=== PATIENT | female | born 1995 | race Caucasian/White ===

== ENCOUNTER → 2019-08-14 14:58 | Outpatient (BNVA) | payer BC, SELFPAY | PROVIDERS: Visit Provider Obstetrics & Gynecology | DX: Z34.91 Encounter for supervision of normal pregnancy, unspecified, first trimester | CPT/HCPCS: 80307; 81000; 84315; 85027; 86592; 86762; 86803; 86850; 86900; 87086; 87340 ==

== ENCOUNTER → 2019-08-21 11:09 | Outpatient (BNVA) | payer BC, SELFPAY | PROVIDERS: Visit Provider Obstetrics & Gynecology | DX: Z34.91 Encounter for supervision of normal pregnancy, unspecified, first trimester (principal) | CPT/HCPCS: 84315; 87491; 87591 ==

== ENCOUNTER 2019-10-12 09:38 | Outpatient (CLI) | payer BC, MEDICAID, SELFPAY ==
--- NOTE | 2019-10-12 09:49 | US_ITS ---
WS: [id number] ULTRASOUND TRANSABDOMINAL HISTORY: SECOND TRIMESTER /ANATOMY CHECK : 1 PARA: 0 COMPARISON: None available. FINDINGS: Cervical length is 4.33 cm; closed. Placenta grade 0, anterior cardiac tones 157 BPM. The facial features are normal with no anomalous changes. The thoracic area show normal appearance all 4 chambers of the heart were seen. Umbilical insertion appear to be normal. Cephalic presentation anterior placenta. The skull, cervical, thoracic, lumbar spine all appear to be normal and developing. The extremities were normal. The abdominal circumference show no abnormalities the kidneys are seen Biparietal diameter measures 4.9 cm, equals 20w6d. Head circumference measures 18.2 cm, equals 20w4d. Abdomen circumference measures 15.7 cm, equals 20w6d. Femur length measures 3.4 cm, equals 20w5d. Estimated gestational age 20w5d An estimated delivery 02/24/2020. Estimated weight 376 g. US/US OB >= 14 weeks fetus [id number] IMPRESSION: 1. Single live intrauterine uterines . Estimated gestational age 20w 5d and estimated delivery 02/24/2020.
== END 2019-10-12 09:39 | disposition home or self-care (01) ==
LOC: RAD 09:40
PROVIDERS: PCP Family Medicine; Visit Provider Family Medicine
DX: Z34.92 Encounter for supervision of normal pregnancy, unspecified, second trimester (principal)
CPT/HCPCS: 76805

== ENCOUNTER 2020-02-09 17:25 | Inpatient (IN) | payer BC, MEDICAID, SELFPAY ==
[2020-02-09] VITALS (43 sets, daily range): BP systolic 0–175; BP diastolic 0–105; PULSE 74–112; RESP 16–18; TEMP 36.8–36.9; BMI 32.1
[2020-02-09 16:30] LABS: Add Urine Microscopic? NO
[2020-02-09 16:34] LABS: Basophils % 0.3 %; Eosinophils % 0.3 %; Hemoglobin 11.3 g/dL (11.5-15.3); Lymphocytes # 1.4 10^3/uL (0.8-4.8); Mean Corpuscular HGB Conc 32.3 g/dL (30.0-36.0); Mean Corpuscular Hemoglobin 29.5 pg (28.0-34.0); Mean Corpuscular Volume 91.4 fL (81-99); Monocytes # 0.5 10^3/uL (0.2-0.9); Monocytes % 6.5 %; Neutrophils # 5.95 10^3/uL (1.8-7.7); Neutrophils % 74.5 %; Nucleated Red Blood Cells % 0 %; Platelet Count 153 10^3/cmm (130-400); Red Blood Count 3.83 10^6/uL (4.1-5.3)
[2020-02-09 16:49] LABS: Albumin Level 3.8 g/dL (3.5-5.2); Alkaline Phosphatase 121 IU/L (35-105); Blood Urea Nitrogen 13 mg/dL (6-20); Calcium 9.3 mg/dL (8.5-10.5); Carbon Dioxide 18 mmol/L (22-29); Chloride 103 mmol/L (98-107); Globulin 2.5 g/dL (1.3-4.6); Glucose 74 mg/dL (65-115); Osmolality Calculated 275 mOsm/kg (285-295); Sodium 135 mmol/L (136-145); Total Bilirubin 0.2 mg/dL (0.15-1.2); Total Protein 6.3 g/dL (6.6-8.7); Uric Acid 6.2 mg/dL (2.4-5.7)
[2020-02-09 17:00] LABS: UPRO/UCREAT Ratio 0.48 mg/mg CR; Urine Creatinine 25 mg/dL (28-217); Urine Protein Random 12 mg/dL
[2020-02-09 17:05] LABS: Bilirubin Urine Neg (NEGATIVE); Blood Urine Neg (Negative); Glucose Urine UA Norm (Normal); Ketones Urine Negative (Negative); Leukocyte Esterase Urine Negative (Negative); Nitrate Urine Negative (Negative); Protein Urine Neg (Negative); Specific Gravity, Urine 1.005 (1.005-1.030); Urine Appearance Clear (CLEAR); Urine Color Straw (Yellow); Urobilinogen Urine Norm (Negative); pH Urine 7 (5-7)
[2020-02-09 17:17] LABS: Slide Review Slide Review Perform
[2020-02-09 17:29] LABS: Anion Gap 18.5 (5-19); Potassium 4.5 mmol/L (3.5-5.1)
[2020-02-09 17:30] LABS: Alanine Aminotransferase 19 U/L (0-33); Aspartate Amino Transferase 43 U/L (0-32)
--- NOTE | 2020-02-09 18:33 | PC.NURSE ---
Payal Monge RN was made aware that lab notified this nurse that the Type and Screen would be cancelled due to it being hemolyzed.
--- NOTE | 2020-02-09 18:59 | P.CONIM_ITS ---
Providers/Reason for Consult Consulting Physican/Specialty*: Dr. Brian Bob Reason for Consult*: Severe preeclampsia at 37 weeks Requesting Physcian: Dr. 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 She presented to labor and delivery from Dr. Larkin's office due to elevated blood pressure and proteinuria. While in L&D she was noted to have several elevated blood pressures with some of these in the severe range. Protein creatinine ratio was elevated at 0.48. Based upon these findings, she has preeclampsia with the blood pressure readings correlating with severe preeclamps ia. As a result, she was admitted to the hospital. I was consulted for hospital management due to the severe preeclampsia. Patient reports feeling movement. She denies current headache. She denies current visual changes. She denied shortness of breath or chest pains. She denied abdominal pains. She reports she has had some swelling which is better today. care is been provided by Dr. Larkin. Labs 08/14/2019 Blood type: O positive. Antibody screen: Negative. Intake CBC: WBC 11.7, Hgb 11.6, Hct 34.3, MCV 88.9, Plt 263. Rubella: Immune Hepatitis B surface antigen: Negative. Hepatitis C antibody: Negative. RPR: Non-reactive. HIV: Negative. Cystic fibrosis screen: Declined Urine drug screen: Negative. Urine culture: No growth. 08/21/2019 Gonorrhea: Negative. Chlamydia: Negative. Pap smear: Negative for intraepithelial lesion or malignancy. 09/07/2019 Quad screen: Low risk. 12/01/2019 GCT: 142 12/29/2019 3-hour GTT: 79/146/149/100 02/02/2020 GBS: Negative. Review of Systems Const: Denies: fever(s) or chills Eyes: Denies: change in vision ENMT: Denies: throat pain or nasal congestion Card: Reports: swelling of feet/ankles; Denies: chest pain, palpitations or lightheadedness Resp: Denies: dyspnea, productive cough, non-productive cough or wheezing GI: Reports: vomiting (Related to acid reflux); Denies: abdominal pain, nausea, diarrhea or constipation : Reports: urinary frequency; Denies: difficulty voiding, dysuria, urinary urgency, genital pruritis, vaginal bleeding, vaginal discharge or pelvic pain Neuro: Denies: headache(s), dizziness or seizure-like activity Psych: Denies: anxiety or depression Endo: Denies: cold intolerance Reggie/Lymph: Denies: easy bruising or easy bleeding Meds/Allergies Home Medications and Allergies Home Medications Medication Instructions Recorded Confirmed Last Taken Type calcium carbonate 200 mg calcium 200 mg PO QID 08/14/19 08/21/19 Unknown History (500 mg) chewable tablet famotidine 20 mg tablet 20 mg PO QDAY 08/14/19 08/21/19 Unknown History prenat.vits,vidhi,nay-ugbw-vmepe 1 tab PO QDAY 08/14/19 08/21/19 Unknown History Allergies Allergy/AdvReac Type Severity Reaction Status Date / Time No Known Allergies Allergy Unverified 08/12/19 16:39 PFSH 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 Quit vaping in 02/2019 Second hand smoke exposure: No Smoking risk assessment/counseling performed?: No Alcohol intake: former Year of sobriety/quit date alcohol: 2019 Former alcohol use details: Quit prior to trying to conceive. Desire information about alcohol rehabilitation?: No Counseling given: No Other Female Reproductive History: Hx Age of Menarche: 14 Duration of menses: 3-5 days Cycle Length: every 28 days Vitals/I&O/Wt Last Vital Signs Pulse 96 02/09/20 18:56 BP 160/84 02/09/20 18:56 Weight last 48 hrs Weight 175 lb 7.657 oz Physical Exam Const: COMMON NORMALS: no acute distress, average body habitus, alert and well nourished GENERAL APPEARANCE: well developed ORIENTATION/CONSCIOUSNESS: Yes oriented to person, Yes oriented to place and Yes oriented to time Neck/C-Spine: GENERAL: Yes trachea midline Resp: COMMON NORMALS: normal respiratory effort and clear to auscultation bilaterally AUSCULTATION: clear to auscultation bilaterally Cardio: COMMON NORMALS: regular rate, regular rhythm, No gallops present (Cardio), No murmurs present (Cardio) and No rub (Cardio) RATE: regular rate RHYTHM: regular rhythm GI: COMMON NORMALS: Soft to palpation, non-tender, No hepatosplenomegaly present and no masses (Except for nontender gravid uterus) AUSCULTATION: Yes normoactive bowel sounds PALPATION: Yes Soft to palpation, Yes No hepatospl enomegaly present and No Hernia present : EXTERNAL FEMALE EXAM: No Hernia present Extremity: COMMON NORMALS: no calf tenderness GENERAL: Yes edema (1+ lower extremity edema) Neuro: COMMON NORMALS: deep tendon reflexes 2+ bilaterally (At the knees. No clonus noted.) SENSORIUM/ORIENTATION: Yes alert, Yes oriented to person, Yes oriented to place and Yes oriented to time Psych: COMMON NORMALS: normal affect MOOD & AFFECT: Yes euthymic mood Skin: COMMON NORMALS: no rashes or lesions noted GENERAL SKIN EXAM: no rashes or lesions noted Data Labs: Other Labs: AST 43, ALT 19, alk phos 121 Uric acid: 6.2 Urine protein/creatinine ratio 0.48 Other Data: Other data: monitoring: Baseline heart rate 120s with moderate variability and accelerations present. No decelerations noted. Category 1 tracing. Irregular contractions present. A&P Assessment and plan (1) Severe pre-eclampsia, third trimester: Patient meets criteria for severe preeclampsia based upon blood pressure readings and protein creatinine ratio. Based upon current recommendations, since she is 37 weeks gestation, recommendations are for her to proceed to delivery. At this point, she does not have any indications for needing section and as a result we will proceed towards a vaginal delivery. Risks of preeclampsia were discussed with the patient and her partner. This included seizures, vision changes and/or loss, pulmonary edema, liver and spleen problems, kidney issues including oliguria and acute renal failure. Reasons for delivery at this time were discussed. Medication use for controlling blood pressure was discussed. Use of magnesium for seizure prophylaxis was discussed. Questions were answered. Start magnesium sulfate for seizure prophylaxis-4 g load and then 2 g/h. Since she has an unfavorable cervix, use of Cytotec for cervical ripening was discussed with her. I discussed with her that it was not FDA approved for use in , but that it is commonly used in . Risks of its use were discussed. Questions were answered. Start with Cytotec 25 mcg vaginally. Status: Acute (2) Gastroesophageal reflux in in third trimester: Patient reports she has problems with acid reflux and had been on famotidine and antacids at home. Will start on IV famotidine in the hospital. Status: Acute Consult Attestations Medical Necessity Statement: Patient with severe preeclampsia and will be hospitalized for at least 24 hours after she delivers. Coding Level of Care Code Acute District Loss Prevention Manager for [facility] Fwd Diagnoses Severe pre-eclampsia, third trimester O14.13 Gastroesophageal reflux in in third trimester O99.613; K21.9
[2020-02-09] MEDS: magnesium sulfate premix 4 GM/100 ML PREMIX IV (19:32)
[2020-02-09] MEDS: dextrose 5%-lactated ringers 1,000 ML 75 ML IV (19:32)
[2020-02-09] MEDS: magnesium sulfate premix 20 GM/500 ML BAG IV (19:52)
[2020-02-09] MEDS: labetalol 5 mg/mL SDV 20mL 20 MG IVP (20:16)
[2020-02-09] MEDS: miSOPROStol 100 mcg tablet 25 MCG VAGINAL (20:16)
[2020-02-09] MEDS: famotidine 20 mg/2 mL INJ IVP (21:41)
[2020-02-10] VITALS (119 sets, daily range): BP systolic 0–163; BP diastolic 0–109; PULSE 84–109; RESP 16–18; TEMP 36.6–37.1
[2020-02-10] MEDS: miSOPROStol 100 mcg tablet 25 MCG VAGINAL ×4 (02:24→19:10)
[2020-02-10 02:35] LABS: Magnesium Level (OB Only) 6.1 mg/dL (5.0-7.5)
[2020-02-10] MEDS: magnesium sulfate premix 20 GM/500 ML BAG IV ×2 (05:52→16:06)
[2020-02-10] MEDS: famotidine 20 mg/2 mL INJ IVP ×2 (06:00→19:10)
--- NOTE | 2020-02-10 07:18 | P.PN_ITS ---
Subjective Subjective: Interval history: 24 year old female, 1, para 0 with an LMP of 05/25/2019 and an EDC of 02/29/2020 based on LMP, which places her at 37- 2/7 weeks gestation Denies complaints at this time. States was able to get some sleep last night. Denies headaches. Denies shortness of breath or chest pains. Denies abdominal pains. Denies vaginal bleeding. Denies leaking of fluid. Reports baby has been moving. Vitals/I&O/Wt Last Vital Signs Temp 98.1 F 02/10/20 04:24 Pulse 101 H 02/10/20 07:12 Resp 17 02/10/20 04:24 BP 139/83 02/10/20 07:12 02/09/20 02/10/20 02/10/20 22:59 06:59 14:59 Intake Total 500 / 500 Output Total 220 / 220 845 / 1065 Balance -220 / -220 -345 / -565 Weight last 48 hrs Weight 175 lb 7.657 oz Physical Exam Const: COMMON NORMALS: no acute distress, average body habitus, alert and well nourished GENERAL APPEARANCE: well developed ORIENTATION/CONSCIOUSNESS: Yes oriented to person, Yes oriented to place and Yes oriented to time Resp: COMMON NORMALS: No use of accessory muscles and clear to auscultation bilaterally AUSCULTATION: clear to auscultation bilaterally Cardio: COMMON NORMALS: regular rate, regular rhythm, No gallops present (Cardio) and No rub (Cardio) RATE: regular rate RHYTHM: regular rhythm GI: COMMON NORMALS: Soft to palpation, non-tender, No hepatosplenomegaly prese nt and no masses (Except for nontender gravid uterus) INSPECTION: Yes gravid abdomen AUSCULTATION: Yes normoactive bowel sounds PALPATION: Yes Soft to palpation, Yes No hepatosplenomegaly present and No Hernia present : EXTERNAL FEMALE EXAM: No Hernia present Extremity: NARRATIVE EXTREMITY EXAM: SCDs in use. GENERAL: Yes edema (Trace to 1+ bilateral lower extremity) Neuro: COMMON NORMALS: deep tendon reflexes 2+ bilaterally (At the knees. No clonus noted.) SENSORIUM/ORIENTATION: Yes alert, Yes oriented to person, Yes oriented to place and Yes oriented to time Psych: COMMON NORMALS: normal affect MOOD & AFFECT: Yes euthymic mood Urinary Catheter Management^: Devries Latex Free: Cath Placed During This Visit: yes Reason for Continuing Indwelling Catheter: Accurate Measurement of Urinary Output in Critically Ill Patients Urinary Catheter Date of Insertion: 02/09/20 Urinary Catheter Time of Insertion: 19:30 Data : 02/09/20 16:10 02/09/20 16:10 Other Labs: 02/10/2020 at 01:56 Magnesium: 6.1 Other data: monitoring: heart rate in the 130s with moderate variability and accelerations present. No decelerations noted. Category 1 tracing. Irregular contractions present. A&P Assessment and plan (1) Severe pre-eclampsia, third trimester: Patient with severe preeclampsia at 37-2/7 weeks gestation. She is currently on magnesium sulfate IV at 2 g/h she is received 1 dose of labetalol during the night. She has received 2 doses of Cytotec 25 mcg vaginally and is due for another dose at this time. Continue with Cytotec for cervical ripening. Status: Acute Attestations Medical Necessity Statement*: Patient with severe preeclampsia being induced. Coding Level of Care Code Acute Entry Level Receptionist for [facility]usuf Diagnoses Severe pre-eclampsia, third trimester O14.13
--- NOTE | 2020-02-10 07:50 | PC.NURSE ---
Nursing Shift Assessment When asked about the reddened skin tone, patient stated she is sunburnt from spending all day at the pool yesterday without sunscreen.
[2020-02-10 08:34] LABS: Magnesium Level (OB Only) 6.8 mg/dL (5.0-7.5)
[2020-02-10] MEDS: dextrose 5%-lactated ringers 1,000 ML 75 ML IV (08:37)
[2020-02-10 14:41] LABS: Magnesium Level (OB Only) 7.5 mg/dL (5.0-7.5)
[2020-02-10 20:07] LABS: Magnesium Level (OB Only) 7.2 mg/dL (5.0-7.5)
[2020-02-10] MEDS: dextrose 5%-lactated ringers 1,000 ML 87.5 ML IV (20:53)
[2020-02-10] MEDS: oxytocin 30 UNIT/500 ML BAG IV (23:30)
[2020-02-10] MEDS: labetalol 5 mg/mL SDV 20mL 20 MG IVP (23:40)
[2020-02-11] VITALS (176 sets, daily range): BP systolic 0–204; BP diastolic 0–126; PULSE 67–98; RESP 16–17; TEMP 36.5–37.2; O2SAT 91–97
--- NOTE | 2020-02-11 01:07 | PC.NURSE ---
AT 2320 PT WAS TRANSFERRED BY BOND TRADER AND Lupe SOLIS RN FROM ROOM 208 TO R 2 VIA WHEELCHAIR.
[2020-02-11 02:02] LABS: Magnesium Level (OB Only) 7.6 mg/dL (5.0-7.5)
[2020-02-11] MEDS: magnesium sulfate premix 20 GM/500 ML BAG IV ×2 (05:32→19:01)
[2020-02-11] MEDS: labetalol 5 mg/mL SDV 20mL 20 MG IVP ×3 (06:54→22:37)
[2020-02-11] MEDS: famotidine 20 mg/2 mL INJ IVP ×2 (06:54→18:29)
[2020-02-11] MEDS: dextrose 5%-lactated ringers 1,000 ML 87.5 ML IV (08:09)
[2020-02-11 08:35] LABS: Magnesium Level (OB Only) 8.1 mg/dL (5.0-7.5)
[2020-02-11] MEDS: fentaNYL 50 mcg/mL INJ 2mL IV ×2 (10:36→12:01)
[2020-02-11] MEDS: labetalol 5 mg/mL SDV 20mL IVP (12:12)
[2020-02-11] MEDS: lactated ringers 1,000 ML 999 ML IV (12:59)
--- NOTE | 2020-02-11 14:10 | P.ANESASSM_ITS ---
Pre-Anesthetic Assessment Pre-Anesthetic Assessment: Height/Weight: Height 1.57 m Weight 79.596 kg Temp Pulse Resp BP Pulse Ox 98.4 F 72 17 142/75 97 02/11/20 04:05 02/11/20 14:05 02/11/20 12:01 02/11/20 14:05 02/11/20 14:07 Preop Diagnosis: IUP Proposed Procedure: epidural Familial anesthetic complications: none Was Beta Joselin taken within 24 hours: N/A Social: Social History: No alcohol and No tobacco Exam: Pre-Anes Outpt Exam: alert, oriented x 3, clear to auscultation bilaterally and regular rate & rhythm Airway: Cervical ROM: WNL MP: 2 Dentition: Full Pulmonary: Pulmonary: None reported CV/HEM: Comments: preeclampsia Anesthetic Plan: ASA status: 3 Anesthesia: Regional (specify below) Risk of > 500 ml blood loss (7ml/kg in children): Yes, adequate IV access and fluids planned Meds/Allergies Current Medications: Current Medications Generic Name Dose Route Start Last Admin Trade Name Freq PRN Reason Stop Dose Admin Famotidine 20 mg 02/09/20 19:00 02/11/20 06:54 Pepcid Inj IVP 20 mg Q12H SOHAM Administration Fentanyl 25 - 100 mcg 02/11/20 10:18 02/11/20 12:01 Sublimaze IV 50 mcg Q1H PRN Administration SEVERE PAIN Dextrose/Lactated Ringer's 1,000 mls @ 125 m ls/hr 02/09/20 18:30 02/11/20 13:01 Dextrose 5%-Lact ated Ringers IV 0 mls/hr .Q8H SOHAM Infusion Magnesium Sulfate 20 gm in 500 mls @ 50 mls/hr 02/09/20 19:00 02/11/20 05:32 Magnesium Sulfat e Premix IV 37.5 mls/hr .Q10H SOHAM Administration Oxytocin 30 unit in 500 ml s @ 1 mls/hr 02/10/20 23:15 02/11/20 08:30 Pitocin IV 14 milliunit/min .Q24H SOHAM 14 mls/hr Titration Protocol 1 MILLIUNIT/MIN Labetalol HCl 20 mg 02/09/20 18:52 02/11/20 06:54 Trandate IVP 20 mg ONCE PRN Administration HYPERTENSION Labetalol HCl 20 mg 02/11/20 06:44 02/11/20 11:28 Trandate IVP 20 mg ONCE PRN Administration HYPERTENSION Labetalol HCl 20 - 80 mg 02/11/20 11:21 02/11/20 12:12 Trandate IVP 40 mg PRN PRN Administration HYPERTENSION Protocol PFSH Anesthesia PFSH: Medical History No active medical problems Surgical History No history of previous surgery Family History Other Patient denies medical problems Social History Smoking and tobacco status: former smoker Quit status (tobacco): has quit using tobacco Year quit tobacco: 2017, quit vaping in 2018 Former quit date comment: Quit cigarettes 2017. Quit vaping in 02/2019 Second hand smoke exposure: No Smoking risk assessment/counseling performed?: No Alcohol intake: former Year of sobriety/quit date alcohol: 2018 Former alcohol use details: Quit prior to trying to conceive. Desire information about alcohol rehabilitation?: No Counseling given: No Female Reproductive History: Date of last menstrual period: 05/11/19 : 1 Data Anesthesia CBC & Chem 7: 02/09/20 16:10 02/09/20 16:10 Other Labs: Laboratory Results - last 48 hr 02/09/20 02/09/20 02/09/20 16:00 16:00 16:10 WBC 8.0 RBC 3.83 L Hgb 11.3 L Hct 35.0 L MCV 91.4 MCH 29.5 MCHC 32.3 RDW 14.0 Plt Count 153 MPV 14.0 H Neut % (Auto) 74.5 Lymph % (Auto) 18.0 [place] % (Auto) 6.5 Eos % (Auto) 0.3 Baso % (Auto) 0.3 Neut # (Auto) 5.95 Lymph # (Auto) 1.4 [place] # (Auto) 0.5 Eos # (Auto) 0.0 Baso # (Auto) 0.0 Nucleated RBC % (auto) 0 Nucleated RBCs # 0.0 Sodium Potassium Chloride Carbon Dioxide Anion Gap BUN Creatinine GFR Calculation Glucose Calculated Osmolality Uric Acid Calcium Magnesium Total Bilirubin AST ALT Alkaline Phosphatase Total Protein Albumin Globulin Urine Color Straw Urine Appearance Clear Urine pH 7 Ur Specific Mclean 1.005 Urine Protein Neg Urine Glucose (UA) Norm Urine Ketones Negative Urine Blood Neg Urine Nitrate Negative Urine Bilirubin Neg Urine Urobilinogen Norm Ur Leukocyte Esterase Negative U Random Total Protein 12 Urine Creatinine 25 L Protein/Creatinin Ratio 0.48 02/09/20 02/10/20 02/10/20 16:10 01:56 07:40 WBC RBC Hgb Hct MCV MCH MCHC RDW Plt Count MPV Neut % (Auto) Lymph % (Auto) [place] % (Auto) Eos % (Auto) Baso % (Auto) Neut # (Auto) Lymph # (Auto) [place] # (Auto) Eos # (Auto) Baso # (Auto) Nucleated RBC % (auto) Nucleated RBCs # Sodium 135 L Potassium 4.5 Chloride 103 Carbon Dioxide 18 L Anion Gap 18.5 BUN 13 Creatinine 0.6 GFR Calculation 125.0 Glucose 74 Calculated Osmolality 275 L Uric Acid 6.2 H Calcium 9.3 Magnesium 6.1 6.8 Total Bilirubin 0.2 AST 43 H ALT 19 Alkaline Phosphatase 121 H Total Protein 6.3 L Albumin 3.8 Globulin 2.5 Urine Color Urine Appearance Urine pH Ur Specific [place]clean Urine Protein Urine Glucose (UA) Urine Ketones Urine Blood Urine Nitrate Urine Bilirubin Urine Urobilinogen Ur Leukocyte Esterase U Random Total Protein Urine Creatinine Protein/Creatinin Ratio 02/10/20 02/10/20 02/11/20 13:45 19:30 01:28 WBC RBC Hgb Hct MCV MCH MCHC RDW Plt Count MPV Neut % (Auto) Lymph % (Auto) [place] % (Auto) Eos % (Auto) Baso % (Auto) Neut # (Auto) Lymph # (Auto) [place] # (Auto) Eos # (Auto) Baso # (Auto) Nucleated RBC % (auto) Nucleated RBCs # Sodium Potassium Chloride Carbon Dioxide Anion Gap BUN Creatinine GFR Calculation Glucose Calculated Osmolality Uric Acid Calcium Magnesium 7.5 7.2 7.6 H Total Bilirubin AST ALT Alkaline Phosphatase Total Protein Albumin Globulin Urine Color Urine Appearance Urine pH Ur Specific [place]clean Urine Protein Urine Glucose (UA) Urine Ketones Urine Blood Urine Nitrate Urine Bilirubin Urine Urobilinogen Ur Leukocyte Esterase U Random Total Protein Urine Creatinine Protein/Creatinin Ratio 02/11/20 07:38 WBC RBC Hgb Hct MCV MCH MCHC RDW Plt Count MPV Neut % (Auto) Lymph % (Auto) [place] % (Auto) Eos % (Auto) Baso % (Auto) Neut # (Auto) Lymph # (Auto) [place] # (Auto) Eos # (Auto) Baso # (Auto) Nucleated RBC % (auto) Nucleated RBCs # Sodium Potassium Chloride Carbon Dioxide Anion Gap BUN Creatinine GFR Calculation Glucose Calculated Osmolality Uric Acid Calcium Magnesium 8.1 H* Total Bilirubin AST ALT Alkaline Phosphatase Total Protein Albumin Globulin Urine Color Urine Appearance Urine pH Ur Specific Mclean Urine Protein Urine Glucose (UA) Urine Ketones Urine Blood Urine Nitrate Urine Bilirubin Urine Urobilinogen Ur Leukocyte Esterase U Random Total Protein Urine Creatinine Protein/Creatinin Ratio Cardiac Studies: No Data to Display
--- NOTE | 2020-02-11 14:15 | ANES.PROC ---
Anesthesia Procedures Procedure/Date: 02/11/20 Epidural: Time Out Performed: Yes Consents Signed: Procedure Consent and NPO Consent Consent: requested by attending/covering physician, from patient, risks and benefits reviewed and patient agrees to proceed Lumbar Level: L3-L4 Epidural position: sitting Epidural procedure: sterile prep of area, 1% lidocaine to numb the area, 18 g needle, negative for paresthesia passed, neg for paresthesia, test dose given, 1.5% xylocaine 1:200k epi (3 cc), no systemic response, sterile dressing applied, L.U.D. no apparent complications and 0.2% Ropiavacaine @ mls/hr (13) Additional Comments: CHERYLE at 5 cm, threaded to 11 cm. Bupivicaine 0.25% 8 cc w/ fentanyl 100 mcg given via epidural. Contractions very hard to detect on monitor. Stayed with patient for approximately 10 to 15 minutes. Stating she is having no pain and seems more comfortable.
--- NOTE | 2020-02-11 14:30 | PC.NURSE ---
RN at bedside, Anesthesia at bedside, pt sitting up on side of bed, support person resting hands on shoulders, prepping for epidural.
--- NOTE | 2020-02-11 16:00 | PC.NURSE ---
pt in left modified menendez with right leg up in stir up
--- NOTE | 2020-02-11 17:00 | PC.NURSE ---
pt in right modified menendez with left leg in stir up
[2020-02-11 17:16] LABS: Magnesium Level (OB Only) 7.8 mg/dL (5.0-7.5)
[2020-02-11] MEDS: dextrose 5%-lactated ringers 1,000 ML 83 ML IV ×2 (17:57→21:07)
[2020-02-11] MEDS: lactated ringers 500 ML 999 ML IV (18:29)
[2020-02-11 20:11] LABS: Alanine Aminotransferase 25 U/L (0-33); Albumin Level 3.6 g/dL (3.5-5.2); Alkaline Phosphatase 122 IU/L (35-105); Anion Gap 18.2 (5-19); Aspartate Amino Transferase 30 U/L (0-32); Blood Urea Nitrogen 11 mg/dL (6-20); Calcium 6.7 mg/dL (8.5-10.5); Carbon Dioxide 21 mmol/L (22-29); Chloride 99 mmol/L (98-107); Globulin 2.6 g/dL (1.3-4.6); Glomerular Filtration Rate 56.2 mL/min (90-130); Glucose 102 mg/dL (65-115); Osmolality Calculated 274 mOsm/kg (285-295); Potassium 4.2 mmol/L (3.5-5.1); Sodium 134 mmol/L (136-145); Total Bilirubin 0.3 mg/dL (0.15-1.2); Total Protein 6.2 g/dL (6.6-8.7)
[2020-02-12] VITALS (38 sets, daily range): BP systolic 120–186; BP diastolic 70–115; PULSE 80–108; RESP 15–18; TEMP 36.7–37.1; O2SAT 93–100
--- NOTE | 2020-02-12 00:26 | PM.PN ---
Subjective Subjective: Interval history: 24-year-old female status post primary low-transverse delivery due to failure to descend. Admitted for induction due to severe preeclampsia. Refers pain under control but can push anymore. Vitals/I&O/Wt Last Vital Signs Temp 98.5 F 02/11/20 19:00 Pulse 98 02/12/20 00:22 Resp 17 02/11/20 19:00 BP 177/106 02/12/20 00:22 Pulse Ox 97 02/11/20 14:12 02/11/20 02/11/20 02/12/20 14:59 22:59 06:59 Intake Total 1995.075 / 2922.672 8045.083 / 3045.158 Output Total 660 / 660 175 / 835 Balance 1336.075 / 1336.075 874.083 / 2210.158 Physical Exam Narrative: EXAM NARRATIVE: GA: Alert and oriented ?3. Lungs: Clear to auscultation bilaterally. Heart: Regular rhythm and rate. Abdomen: Gravid, fundal height corelates dates, nontender. DIGITAL CONTENT PRODUCER: SVE; dilation: 5 cm, effacement: 100 %, station: 0, presentation: Vertex, membranes: SROM clear. Extremities: no edema, no cyanosis, no calves pain. heart tracing: Basal rate: 140s bpm, Variability: minimal, Accelerations: Present, Decelerations: Early, Contractions: Every 4 Units. Urinary Catheter Management^: Devries Latex Free: Cath Placed During This Visit: yes Reason for Continuing Indwelling Catheter: Accurate Measurement of Urinary Output in Critically Ill Patients Urinary Catheter Date of Insertion: 02/09/20 Urinary Catheter Time of Insertion: 19:30 Data : 02/12/20 15:08 02/12/20 02:48 A&P Assessment and plan (1) Severe pre-eclampsia, third trimester: 22-year-old female admitted for induction due to severe preeclampsia. She had a slow progress of labor augmented with Pitocin after misoprostol for cervical ripening. She had been fully dilated for 4 hours. No significant descent of presentation. The patient was counseled regarding this arrest of descent, and the recommendation for delivery.The patient agreed. Plan: Primary low-transverse delivery Status: Resolved Attestations Medical Necessity Statement*: In my professional opinion per admitting diagnosis Coding Level of Care Code Acute Hide Washer for [facility] Fwd Diagnoses Severe pre-eclampsia, third trimester O14.13
[2020-02-12] MEDS: lactated ringers 1,000 ML 999 ML IV (00:39)
[2020-02-12] MEDS: metoclopramide 5 mg/mL SDV 2 mL 10 MG IV (00:40)
[2020-02-12] MEDS: famotidine 20 mg/2 mL INJ IVP ×2 (00:40→12:56)
[2020-02-12] MEDS: citric acid-sodium citrate 30 mL UDC (00:42)
[2020-02-12 01:46] LABS: Magnesium Level (OB Only) 10.1 mg/dL (5.0-7.5)
--- NOTE | 2020-02-12 02:24 | P.OP_ITS ---
Operative Report Date of procedure: February 12, 2020 Pre-op Diagnosis: IUP At term, Severe preeclampsia, failure to descend Post-op diagnosis: same Procedure Done: Primary low-transverse delivery Pathology: none sent Surgeon: Hebert Fernandez Anesthesia: General Estimated blood loss (mL): 1,200 IV fluids (mL): 1,300 Urine output (mL): 100 Condition: stable Disposition: other (OB alonso) Procedure: After assuring informed consent, the patient was taken to the operating room and anesthesia was initiated. She was placed in the dorsal supine position with a left lateral tilt. The abdomen was prepped and draped in the usual sterile manner. A time-out procedure was performed. A Pfannenstiel skin incision was made with the scalpel and carried through to the underlying layer of fascia with the Bovie. The fascia was nicked in the midline and the incision extended laterally with the Ji scissors. The superior aspect of the fascial incision was then grasped with Aylin clamps and elevated and the underlying rectus muscle dissected off bluntly and sharp with ji scissors dense adhesions. Attention was then turned to the inferior aspect of the incision which, in similar fashion, was grasped and tented up with Aylin clamps and the rectus muscle dissected bluntly. The rectus muscles were then in the midline and the peritoneum identified, tented up and entered sharply with Metzenbaum scissors. The peritoneal incision was then extended superiorly and inferiorly with good visualization of the bladder. The Bob O retractor was then inserted and the vesicouterine peritoneum identified, grasped with pickups and entered sharply with Metzenbaum scissors. This incision was then extended laterally and the bladder flap created digitally. The uterus was incised in a low transverse fashion with the scalpel. The uterine incision was then extended with the bandage scissors. The infant was then delivered in the cephalic presentation atraumatically The nose and the mouth were suctioned with bulb and the cord clamped and cut. The infant was handed over immediately to the awaiting test equipment mechanic and nursing personnel. The cord was normal and had three vessels. Amniotic fluid was clear. The placenta was then removed manually and the uterus exteriorized and cleared of all clots and debris. The uterine incision was repaired with 0 Vicryl in a running-locked fashion. A second layer of the same suture was used to obtain excellent hemostasis. The gutters were cleared of all clots. The uterus was then returned to the abdomen. The rectus muscles were approximated with 3-0 chromic gut. The fascia was reapproximated with 0 Vicryl in an interrupted running fashion. The skin was closed with Insorb?s subcuticular absorbable ni. The incision was infiltr ated with Exparel long-lasting local anesthetic. The patient tolerated the procedure well. The sponge, lap and needle counts were correct times three.
[2020-02-12 03:37] LABS: Basophils % 0.3 %; Hematocrit 32.3 % (37.0-47.0); Hemoglobin 10.1 g/dL (11.5-15.3); Lymphocytes # 0.3 10^3/uL (0.8-4.8); Lymphocytes % 4.4 %; Mean Corpuscular HGB Conc 31.3 g/dL (30.0-36.0); Mean Corpuscular Volume 95.8 fL (81-99); Mean Platelet Volume 13.8 fL (7.4-10.4); Monocytes # 0.1 10^3/uL (0.2-0.9); Monocytes % 1.1 %; Neutrophils # 5.99 10^3/uL (1.8-7.7); Neutrophils % 93.9 %; Nucleated Red Blood Cells % 0 %; Platelet Count 70 10^3/cmm (130-400); Red Blood Count 3.37 10^6/uL (4.1-5.3); Red Cell Distribution Width 14.7 % (12.1-15.1); White Blood Count 6.4 10^3/uL (4.0-10.0)
[2020-02-12 03:56] LABS: Alanine Aminotransferase 22 U/L (0-33); Albumin Level 2.7 g/dL (3.5-5.2); Alkaline Phosphatase 122 IU/L (35-105); Anion Gap 18.4 (5-19); Aspartate Amino Transferase 31 U/L (0-32); Blood Urea Nitrogen 11 mg/dL (6-20); Calcium 6.5 mg/dL (8.5-10.5); Carbon Dioxide 19 mmol/L (22-29); Chloride 103 mmol/L (98-107); Globulin 2.2 g/dL (1.3-4.6); Glomerular Filtration Rate 37.6 mL/min (90-130); Glucose 102 mg/dL (65-115); Osmolality Calculated 280 mOsm/kg (285-295); Potassium 3.4 mmol/L (3.5-5.1); Sodium 137 mmol/L (136-145); Total Bilirubin 0.6 mg/dL (0.15-1.2); Total Protein 4.9 g/dL (6.6-8.7); Uric Acid 8.4 mg/dL (2.4-5.7)
[2020-02-12 04:02] LABS: Slide Review Slide Review Perform
[2020-02-12 04:23] LABS: Magnesium Level (OB Only) 8.4 mg/dL (5.0-7.5)
[2020-02-12 06:36] LABS: Protein Urine 2+ (Negative); Urine Appearance Bloody (CLEAR); Urine Color Red (Yellow); pH Urine 5 (5-7)
[2020-02-12 06:37] LABS: Add Urine Culture? Yes; Add Urine Microscopic? YES; Bacteria Urine 1+; Bilirubin Urine Neg (NEGATIVE); Blood Urine 3+ (Negative); Glucose Urine UA Norm (Normal); Ketones Urine Negative (Negative); Leukocyte Esterase Urine 1+ (Negative); Nitrate Urine Negative (Negative); RBC Urine TOO NUMEROUS TO CNT /hpf (0-2); Urobilinogen Urine Norm (Negative)
[2020-02-12 06:42] LABS: Urine Creatinine 38 mg/dL (28-217)
[2020-02-12 07:27] LABS: UPRO/UCREAT Ratio 1.95 mg/mg CR; Urine Protein Random 74 mg/dL
[2020-02-12 07:31] LABS: Magnesium Level (OB Only) 6.6 mg/dL (5.0-7.5)
[2020-02-12] MEDS: dextrose 5%-lactated ringers 1,000 ML 125 ML IV ×2 (08:35→19:55)
[2020-02-12] MEDS: magnesium sulfate premix 20 GM/500 ML BAG IV ×2 (08:36→20:02)
[2020-02-12] MEDS: ketorolac 30 mg/mL INJ IVP ×2 (08:44→19:54)
[2020-02-12] MEDS: prenatal vitamin Capsule 1 CAP PO (08:46)
[2020-02-12] MEDS: docusate sodium 100 mg Capsule PO ×2 (08:46→19:54)
[2020-02-12] MEDS: ferrous sulfate EC 325 mg Tablet PO ×2 (08:46→19:54)
--- NOTE | 2020-02-12 10:37 | ANE.PACU2 ---
Inpatient post-anesthesia follow up: Airway intact: Yes Vital signs: Temperature 98.0 F Pulse Rate 96 Respiratory Rate 15 Blood Pressure 128/85 Pulse Oximetry 96 Oxygen Delivery Me thod Room Air Oxygen Flow Rate Fraction of Inspir ed Oxygen Hydration adequate: Yes Nausea and vomiting: No Pain level: 2 Mental status: Baseline Additional Comments: States she woke up this morning with some blurry vision. Educated patient to continue to monitor this, watch BPs, inform nurses/staff if improvement or deprovement
[2020-02-12 15:23] LABS: Hematocrit 27.8 % (37.0-47.0); Hemoglobin 8.4 g/dL (11.5-15.3); Mean Corpuscular HGB Conc 30.2 g/dL (30.0-36.0); Mean Corpuscular Hemoglobin 29.3 pg (28.0-34.0); Mean Corpuscular Volume 96.9 fL (81-99); Mean Platelet Volume 14.3 fL (7.4-10.4); Platelet Count 82 10^3/cmm (130-400); Red Blood Count 2.87 10^6/uL (4.1-5.3); Red Cell Distribution Width 15.2 % (12.1-15.1); White Blood Count 24.4 10^3/uL (4.0-10.0)
--- NOTE | 2020-02-12 17:45 | PC.NURSE ---
urine noted to be slightly blood stained and straw colored
[2020-02-12 17:59] LABS: Magnesium Level (OB Only) 8.8 mg/dL (5.0-7.5)
--- NOTE | 2020-02-12 18:00 | PC.NURSE ---
Received telephone order from Dr. Bob to stop Magnesium for one hour, and restart at 1gram/hr and collect magnesium level 6 hours after start time.
--- NOTE | 2020-02-12 18:50 | PM.PN ---
Subjective Subjective: Interval history: 24-year-old female status post primary low-transverse delivery due to failure to descend. Admitted for induction due to severe preeclampsia. She refers feeling better than yesterday. Refers pain under control. Vitals/I&O/Wt Last Vital Signs Temp 98.0 F 02/12/20 06:30 Pulse 96 02/12/20 06:30 Resp 15 02/12/20 06:30 BP 128/85 02/12/20 06:30 Pulse Ox 96 02/12/20 06:30 02/12/20 02/12/20 02/12/20 06:59 14:59 22:59 Intake Total 1533.833 / 1533.833 Output Total 1100 / 1950 1565 / 1565 260 / 1825 Balance -1100 / 1095.158 -31.167 / -31.167 -260 / -291.167 Physical Exam Narrative: EXAM NARRATIVE: GA; alert and oriented x 3 HEENT: normal Breasts: engorged Nipples - skin intact Lungs; clear to auscultation Heart: regular rhythm, no murmurs. Abd: Appropriately tender. BS+. Uterine fundus below umbilicus. No Fundal Tenderness, minimal tenderness, incision clean and dry, no redness, pain or edema. Perineum: normal lochia. Extremities: no edema, no cyanosis, no tenderness. Urinary Catheter Management^: Devries Latex Free: Cath Placed During This Visit: yes Reason for Continuing Indwelling Catheter: Accurate Measurement of Urinary Output in Critically Ill Patients Urinary Catheter Date of Insertion: 02/12/20 Urinary Catheter Time of Insertion: 00:45 Data : 02/12/20 15:08 02/12/20 02:48 Other Labs: Laboratory Tests 02/12/20 17:26 Magnesium 8.8 H* A&P Assessment and plan (1) delivery due to maternal disorder: Patient is status post primary low-transverse delivery early this morning. Blood pressure improvement, urine output had improved. Magnesium sulfate at therapeutic level. 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
[2020-02-13] VITALS (11 sets, daily range): BP systolic 130–159; BP diastolic 79–100; PULSE 78–97; RESP 14–18; TEMP 36.6–36.9; O2SAT 94–98
[2020-02-13] MEDS: famotidine 20 mg/2 mL INJ IVP (01:33)
[2020-02-13] MEDS: ketorolac 30 mg/mL INJ IVP (01:59)
[2020-02-13 05:44] LABS: Magnesium Level (OB Only) 7.9 mg/dL (5.0-7.5)
[2020-02-13] MEDS: dextrose 5%-lactated ringers 1,000 ML 125 ML IV (05:59)
[2020-02-13] MEDS: HYDROcodone-acetaminophen 5-325 mg Tablet PO ×2 (08:28→18:36)
[2020-02-13] MEDS: docusate sodium 100 mg Capsule PO ×2 (08:30→18:06)
[2020-02-13] MEDS: prenatal vitamin Capsule 1 CAP PO (08:30)
[2020-02-13] MEDS: ferrous sulfate EC 325 mg Tablet PO ×2 (08:30→18:05)
--- NOTE | 2020-02-13 10:26 | P.PN_ITS ---
Subjective Subjective: Interval history: Reports feeling better this morning since the magnesium was stopped. Denies shortness of breath or chest pains. Denies headaches. Denies lightheadedness or dizziness with sitting up in bed. States pain is been controlled with pain medications. Reports passing flatus. Vitals/I&O/Wt Last Vital Signs Temp 98.5 F 02/13/20 08:45 Pulse 95 02/13/20 08:45 Resp 18 02/13/20 08:45 BP 149/100 02/13/20 08:45 Pulse Ox 96 02/13/20 05:00 02/12/20 02/13/20 02/13/20 22:59 06:59 14:59 Intake Total 1686.792 / 3803.250 2286.667 / 6089.917 Output Total 420 / 1985 1537 / 3522 250 / 250 Balance 1266.792 / 1818.250 749.667 / 2567.917 -250 / -250 Physical Exam Const: COMMON NORMALS: no acute distress, average body habitus, alert and well nourished GENERAL APPEARANCE: well developed ORIENTATION/CONSCIOUSNESS: Yes oriented to person, Yes oriented to place and Yes oriented to time Resp: COMMON NORMALS: normal respiratory effort and clear to auscultation bilaterally AUSCULTATION: clear to auscultation bilaterally Cardio: COMMON NORMALS: regular rate, regular rhythm, No gallops present (Cardio) and No rub (Cardio) RATE: regular rate RHYTHM: regular rhythm GI: COMMON NORMALS: Soft to palpation, non-tender, No hepatosplenomegaly present and no masses (Except for mildly tender uterus, approximately 1 fingerbreadth below the umbilicus) INSPECTION: Yes incision (Pfannenstiel incision well approximated without erythema or induration noted.) AUSCULTATION: Yes normoactive bowel sounds PALPATION: Yes Soft to palpation, Yes Tenderness to palpation present (GI) (Lower abdomen), Yes No hepatosplenomegaly present and No Hernia present : EXTERNAL FEMALE EXAM: No Hernia present Extremity: COMMON NORMALS: no calf tenderness NARRATIVE EXTREMITY EXAM: 1- 2+ lower extremity edema bilaterally. Neuro: SENSORIUM/ORIENTATION: Yes alert, Yes oriented to person, Yes oriented to place and Yes oriented to time Psych: COMMON NORMALS: normal affect MOOD & AFFECT: Yes euthymic mood Urinary Catheter Management^: Devries Latex Free: Cath Placed During This Visit: yes Reason for Continuing Indwelling Catheter: Accurate Measurement of Urinary Output in Critically Ill Patients Urinary Catheter Date of Insertion: 02/12/20 Urinary Catheter Time of Insertion: 00:45 Data : 02/12/20 15:08 02/12/20 02:48 Micro: Microbiology 02/12/20 04:30 Urine Culture - Preliminary Urine,Clean Catch Gram Negative Rods A&P Assessment and plan (1) delivery due to maternal disorder: Postoperative day 1, status post primary section. From a surgery standpoint, patient is doing well. Advance to regular diet this morning. Discontinue Devries catheter. Increase activity and may shower if able to ambulate well. Patient started on oral pain medications this morning. Status: Acute (2) Severe pre-eclampsia, delivered, current hospitalization: Patient had been diagnosed with severe hypertension on admission. She had been on magnesium sulfate for seizure prophylaxis during labor and for at least 24 hours . She started diuresing at approximately 1 AM this morning and has had 200 mL or more per hour urine output since that time. Magnesium was discontinued early this morning. Continue to follow blood pressures. They are still slightly elevated, but do not meet severe criteria. Depending upon blood pressure readings today as she increases activity, may need to start oral medications. Status: Acute (3) Anemia during , delivered, current hospitalization: H&H on admission on 02/09/2020 was 11.3/35.0. Post H&H on 02/12/2020 was 8.4/27.8. Patient is currently asymptomatic in bed. We will see how she does as activities are increased today. Patient will be sent home on oral iron. Status: Acute (4) acute cystitis: Patient was noted to have gross hematuria during labor. Urine culture had been ordered. Catheterized urine culture this morning has a preliminary read of 50-60,000 CFU of gram-negative rods. This is considered a significant colony count for catheterized sample. Start Keflex 500 twice a day pending final culture results. Status: Acute Attestations Medical Necessity Statement*: Patient will need to remain in the hospital at least until tomorrow for close blood pressure management as she has come off of the magnesium and with increased activities. 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
[2020-02-13] MEDS: cephALEXin 500 mg Capsule PO ×2 (12:22→22:06)
[2020-02-13] MEDS: labetalol 200 mg Tablet 100 MG PO ×2 (13:22→22:04)
--- NOTE | 2020-02-13 17:08 | PC.NURSE ---
1130 IV TO PIID SALINE FLUSH DONE C/D/I
[2020-02-14 02:00] VITALS: BP 124/79; PULSE 82; RESP 18; TEMP 36.7
[2020-02-14 06:16] VITALS: BP 138/84; PULSE 81; RESP 18; TEMP 36.7
[2020-02-14] MEDS: prenatal vitamin Capsule 1 CAP PO (07:41)
[2020-02-14] MEDS: HYDROcodone-acetaminophen 5-325 mg Tablet PO (07:41)
[2020-02-14] MEDS: ferrous sulfate EC 325 mg Tablet PO (07:42)
[2020-02-14] MEDS: cephALEXin 500 mg Capsule PO (08:17)
[2020-02-14] MEDS: labetalol 200 mg Tablet 100 MG PO (08:17)
[2020-02-14] MEDS: docusate sodium 100 mg Capsule PO (08:18)
[2020-02-14 12:13] VITALS: BP 138/96; PULSE 81; RESP 16; TEMP 36.6; O2SAT 98
--- NOTE | 2020-02-14 12:16 | PM.OBGYDC ---
Discharge Providers CAR SALTER Date of Admission: 02/09/20 17:25 Date of Discharge: 02/14/20 Attending Provider at Admission: Brian Bob MD Attending Provider at Discharge: Brian Bob MD Primary Care Provider: Mere Larkin MD Diagnoses at Discharge Discharge Diagnosis (1) delivery due to maternal disorder: Status: Acute (2) Severe pre-eclampsia, delivered, current hospitalization: Status: Acute (3) Anemia during , delivered, current hospitalization: Status: Acute (4) acute cystitis: Status: Acute Reason for Visit Reason for Visit: hypertension Hospital Course Hospital Course: Patient is a 24-year-old white female 1, para 0 with an LMP of 05/25/2019 and an EDC of 02/29/2020 based on LMP, which placed her at 37-1/7 weeks gestation at the time of admission. She was seen by Dr. Larkin in the office on the day of admission was noted to have elevated blood pressure and proteinuria on the dipstick. She was sent to L&D for further evaluation and was found to have severe hypertension with a protein creatinine ratio of 0.48, which diagnosed her with severe preeclampsia. As result I was consulted for management. She was admitted to the hospital and was started on magnesium for seizure prophylaxis. She was given labetalol IV during labor for blood pressure management. She was started on Cytotec and received multiple doses through the first evening and the next day. She was eventually started on Pitocin and finally started progressing. She had progressed to complete dilation by 17:30 on 02/10. She initially pushed but was not making much progress and was then allowed to labor down. She started pushing again however, her pushes became ineffective and she was eventually taken for section. Baby was delivered by primary section on 02/12/2020 at 01:25. She had a viable male weighing 3240 g with of 1 at 1 minute, 4 at 5 minutes, and 9 at 10 minutes. Patient had had an extremely high magnesium level in the 10 range shortly before going to the OR and it was felt that the high magnesium in the baby contributed to a very floppy baby that was not wanting to initially breathe. Patient was continued on magnesium following delivery. Patient had received Duramorph in her epidural for postoperative pain management. On postoperative day 1, 02/12, by that morning, patient was doing better. She had started diuresing during the night and magnesium was stopped in the helium arc welder hours. She continued to diurese during the day. Devries catheter was discontinued that morning. She was started initially on a clear liquid diet. This was later advanced during the day. Activities were also increased. She had been switched to oral pain medications. Blood pressure was monitored through the day. By the evening she was started on oral labetalol due to continued elevated blood pressures. Patient had had gross hematuria noted during her labor course and a urine culture had been obtained. Results were back and she was noted to have 50-60,000 CFU gram-negative rods on a catheterized sample. As a result she was diagnosed with a cystitis and started on Keflex. Patient had also been noted to be anemic following delivery. On postoperative day 2, 02/13, patient reports feeling much better. She reports ambulating without lightheadedness or dizziness. She reported tolerating a regular diet without nausea or vomiting. She denied any shortness of breath or chest pains. She denied headaches. She reported continued passing of flatus. She denied problems with urination. She stated her bleeding had slowed. Physical Exam: See below Plan Blood pressures had been controlled on oral medications. As a result, she was instructed to continue labetalol at home. She was also instructed to check blood pressure at home once or twice a day. She was also instructed to take oral iron in addition to the vitamins. She was being discharged to home. Discharge instructions were discussed with her. She was to follow-up with Dr. Fernandez in approximately 2 weeks for an incision check. She was to follow-up with Dr. Larkin's office in approximately 6 weeks for check. Information Peripartum Data: Delivery Method: Section Laceration description: None Episiotomy description: None Additional Peripartum Information: Severe preeclampsia [place]: 1: Gender: Male Physical Exam Const: COMMON NORMALS: no acute distress, average body habitus, alert and well nourished GENERAL APPEARANCE: well developed ORIENTATION/CONSCIOUSNESS: Yes oriented to person, Yes oriented to place and Yes oriented to time Resp: COMMON NORMALS: normal respiratory effort and clear to auscultation bilaterally AUSCULTATION: clear to auscultation bilaterally Cardio: COMMON NORMALS: regular rate, regular rhythm, No gallops present (Cardio) and No rub (Cardio) RATE: regular rate RHYTHM: regular rhythm GI: COMMON NORMALS: Soft to palpation, No hepatosplenomegaly present and no masses (Except for mildly tender uterus approximately 1 to 2 fingerbreadths below the umbilicus) INSPECTION: Yes incision (Clean, dry, and intact.) AUSCULTATION: Yes normoactive bowel sounds PALPATION: Yes Soft to palpation, Yes No hepatosplenomegaly present and No Hernia present : EXTERNAL FEMALE EXAM: No Hernia present Extremity: COMMON NORMALS: no calf tenderness NARRATIVE EXTREMITY EXAM: 1-2+ lower extremity edema Neuro: SENSORIUM/ORIENTATION: Yes alert, Yes oriented to person, Yes oriented to place and Yes oriented to time Psych: COMMON NORMALS: normal affect MOOD & AFFECT: Yes euthymic mood Urinary Catheter Management^: Devries Latex Free: Cath Placed During This Visit: yes Reason for Continuing Indwelling Catheter: Accurate Measurement of Urinary Output in Critically Ill Patients Urinary Catheter Date of Insertion: 02/12/20 Urinary Catheter Time of Insertion: 00:45 Discharge Data Data Completed and Pendin02/09/2020 CBC: WBC 8.0, hemoglobin 11.3, hematocrit 35.0, MCV 91.4, platelet 153,000 CMP: Sodium 135, potassium 4.5, chloride 103, BUN 13, creatinine 0.6, glucose 74, calcium 9.3, total bili 0.2, AST 43, ALT 19, alk phos 121, total protein 6.3 Uric acid 6.2 Protein/creatinine ratio: 0.48 02/12/2020 Catheterized urine culture: 50-60,000 CFU E. coli 02/12/2020 CBC: WBC 24.4, hemoglobin 8.4, hematocrit 27.8, platelet 82,000 Vitals: Last Vital Signs Temp 98.0 F 02/14/20 06:16 Pulse 81 02/14/20 06:16 Resp 18 02/14/20 06:16 BP 138/84 02/14/20 06:16 Pulse Ox 96 02/13/20 18:00 Discharge Plan Discharge Patient Disposition: Home, Self-Care Condition: Stable Prescriptions: New hydrocodone-acetaminophen 5-325 mg Tablet 1 - 2 tab PO Q6H PRN (Reason: Moderate To Severe Pain) Qty: 30 RF: 0 ferrous sulfate 325 mg (65 mg iron) Tablet,Delayed Release (Dr/Ec) 325 mg PO DAILY 30 Days Qty: 30 RF: 1 ibuprofen 800 mg Tablet 800 mg PO TID PRN (Reason: pain) Qty: 40 RF: 0 cephalexin 500 mg Capsule 500 mg PO BID 6 Days Qty: 12 RF: 0 labetalol 100 mg tablet 100 mg PO BID 30 Days Qty: 60 RF: 1 Continued prenat.vits,vidhi,img-[id number] Tablet 1 tab PO QDAY RF: 0 calcium carbonate [Tums] 200 mg calcium (500 mg) tablet,chewable 200 mg PO QID RF: 0 Discontinued famotidine [Pepcid] 20 mg tablet 20 mg PO QDAY RF: 0 Discharge Orders: Discharge Order (Routine); Ordered 02/14/20 Ordered By: Brian Bob Referrals: Hebert Fernandez MD [Physician] - 2 weeks (postoperative appointment with Dr. Fernandez or Nicole Del Rio) Mere Larkin MD [Primary Care Provider] - 6 Weeks () Discharge Diet: Regular Discharge Activity: Limit activity as instructed Patient Instructions: Your Baby (GEN), Expression, Collection and Storage of Breastmilk (GEN), How to Hold and Breastfeed Your Baby (GEN), and Nipple Soreness (GEN), Breast Fullness Versus Breast Engorgement (GEN), and Plugged Ducts (GEN), How to Increase Your Milk Supply (GEN), How to Tell if Your Baby is Getting Enough Breast Milk (GEN), and Your Diet (GEN), Breast Care for the Breast Feeding Mother (GEN), OB WHC, OB Discharge Report, OB Food/Drug Interaction Guide Discharge Attestations CAR SALTER Time Spent in Discharge Care*: less than 30 min Coding Level of Care Code Acute Line O Scribe Operator for [facility] Diagnoses delivery due to maternal disorder O99.89 Severe pre-eclampsia, delivered, current hospitalization O14.14 Anemia during , delivered, current hospitalization O99.02 acute cystitis O86.22
[2020-02-14 14:35] VITALS: BP 149/91; PULSE 83; RESP 18; TEMP 36.8; O2SAT 98
--- NOTE | 2020-02-23 17:55 | PC.NURSE ---
Dr. Bob notified of Sharita Abdalla's , stating patient complaints of Sharita still having vision affects from being on the magnesium when she was in the hospital delivering her baby. Dr. Bbo stated she was a patient of Dr. Larkin's that they had taken over care for due to the patient having pre-eclampsia, and that Dr. Larkin would need to be notified of the patient's symptoms. Dr. Larkin was then notified of the patient's complaints she had given her , and Sharita's phone number was provided to Dr. Larkin so she could call the patient and discuss what affects Sharita is feeling, and to give her a recommendation on being evaluated.
== END 2020-02-14 15:00 | disposition home or self-care (01) | DRG 788 ==
LOC: OBGYN 23:02 → OPOB 02-10 08:55
PROVIDERS: Obstetrics & Gynecology; Admitting Provider Obstetrics & Gynecology; PCP Family Medicine; Visit Provider Obstetrics & Gynecology
PROC: 10D00Z1 Extraction of Products of Conception, Low, Open Approach (ICD-10-PCS; CPT 59514; principal; 2020-02-12 01:00)
DX: O14.14 Severe pre-eclampsia complicating childbirth (principal); Z3A.37 37 weeks gestation of pregnancy; Z37.0 Single live birth; O99.02 Anemia complicating childbirth; D64.9 Anemia, unspecified; O86.22 Infection of bladder following delivery; O32.4XX0 Maternal care for high head at term, not applicable or unspecified
CPT/HCPCS: 12345; 36415; 51702; 59025; 59409; 80053; 81001; 81003; 82570; 83735; 84156; 84550; 85025; 85027; 87077; 87086; 87186; 96375; 98960; 99211; C9290; J0330; J0690; J1100; J1885; J2250; J2274; J2405; J2704; J2765; J2795; J3010; J3475; J3490; J7030

== ENCOUNTER → 2021-02-15 18:14 | Outpatient (BNVA) | payer MEDICAID, SELFPAY | PROVIDERS: PCP Family Medicine; Visit Provider Registered Nurse Neonatal Intensive Care | DX: J02.9 Acute pharyngitis, unspecified (principal) | CPT/HCPCS: 87880 ==

== ENCOUNTER → 2024-02-19 07:49 | Outpatient (BNVA) | payer MEDICAID, SELFPAY | PROVIDERS: PCP Family Medicine; Visit Provider Nurse Practitioner Women's Health | DX: Z30.9 Encounter for contraceptive management, unspecified (principal); Z12.4 Encounter for screening for malignant neoplasm of cervix; Z30.430 Encounter for insertion of intrauterine contraceptive device | CPT/HCPCS: 81025; 88175 ==